=== PATIENT | female | born 1960 | race Two or more races ===

== ENCOUNTER 2022-09-17 11:33 | Emergency (ER) | payer OTHER ==
[~2022-09-17] VITALS: Ht 157.5 cm; Wt 49.0 kg
[2022-09-17 11:47] VITALS: BP 155/70
[2022-09-17] MEDS ORDERED: CLON1TAB23 PO (13:03)
== END 2022-09-17 13:30 | disposition home or self-care (01) ==
LOC: ER 11:33
DX: Z76.0 Encounter for issue of repeat prescription (principal); F41.9 Anxiety disorder, unspecified
CPT/HCPCS: 99281; 99283

== ENCOUNTER 2023-06-19 19:05 | Emergency (ER) | payer OTHER ==
[~2023-06-19] VITALS: Ht 162.6 cm; Wt 50.0 kg
[~2023-06-19 19:05] MED LIST: CLON1TAB23 PO
[2023-06-19 19:17] VITALS: TEMP 98.2; O2SAT 100
[2023-06-19] MEDS ORDERED: LORAZEPAM 0.5MG TABLET PO ONE (19:45)
[2023-06-19 20:45] VITALS: BP 144/86; PULSE 75; RESP 16
[2023-06-19 20:54] LABS: BASOPHILS % 0.9 % (0.0-2.0); HEMATOCRIT. 37.6 % (36.0-48.0); HEMOGLOBIN. 12.5 g/dL (12.0-16.0); LYMPHOCYTES % 17.2 % (20.0-50.0); MEAN CORPUSCULAR HEMOGLOBIN 30.8 pg (28.0-32.0); MEAN CORPUSCULAR HGB CONC 33.4 g/dL (31.0-37.0); MEAN CORPUSCULAR VOLUME 92.3 fL (81.0-99.0); MEAN PLATELET VOLUME 7.7 fl (7.4-10.4); MONOCYTES % 8.5 % (2.0-8.0); NEUTROPHILS % 71.4 % (40.0-76.0); PLATELET 259 x1000/uL (130-400); RED BLOOD CELL COUNT 4.07 mill/uL (4.2-5.4); RED CELL DISTRIBUTION WIDTH 13.1 % (11.6-14.6); WHITE BLOOD COUNT 6.9 x1000/uL (4.5-11.0)
[2023-06-19 21:18] LABS: ALANINE AMINOTRANSFERASE < 7 IU/L (10-49); ALBUMIN 3.8 g/dL (3.2-4.8); ASPARTATE AMINOTRANSFERASE 18 IU/L (<34); BILIRUBIN TOTAL 0.2 mg/dL (0.1-1.0); CALCIUM 8.9 mg/dL (8.7-10.4); CARBON DIOXIDE 25 mEq/L (21-32); CHLORIDE 107 mEq/L (98-107); CREATININE 1.7 mg/dL (0.6-1.0); GLUCOSE 103 mg/dL (70-105); POTASSIUM 3.9 mEq/L (3.5-5.1); PROTEIN TOTAL 6.3 g/dL (6.0-8.3); SODIUM 139 mEq/L (136-145); UREA NITROGEN BLOOD 18 mg/dL (9-23)
[2023-06-19] MEDS ORDERED: LORAZEPAM 0.5MG TABLET PO NR (21:45)
== END 2023-06-19 21:59 ==
LOC: ER 19:05
DX: R42 Dizziness and giddiness (principal)
CPT/HCPCS: 36415; 80053; 85025; 99283